=== PATIENT | female | born 1990 | race Caucasian/White ===

== ENCOUNTER → 2020-02-23 11:12 | Outpatient (BNVA) | payer MEDICAID, SELFPAY | PROVIDERS: Visit Provider Advanced Practice Midwife | DX: Z76.89 Persons encountering health services in other specified circumstances (principal) ==

== ENCOUNTER → 2020-04-05 13:03 | Outpatient (BNVA) | payer OTHER, SELFPAY | PROVIDERS: Visit Provider Advanced Practice Midwife | DX: Z30.432 Encounter for removal of intrauterine contraceptive device (principal); Z30.09 Encounter for other general counseling and advice on contraception; N92.6 Irregular menstruation, unspecified | CPT/HCPCS: 58301; 81025; 99212 ==

== ENCOUNTER 2020-10-15 10:44 | Outpatient (REF) | payer OTHER, SELFPAY | END 2020-10-15 10:45 | disposition home or self-care (01) | LOC: HO.LAB 10:44 | PROVIDERS: Visit Provider Internal Medicine | DX: Z20.822 Contact with and (suspected) exposure to COVID-19 (principal) | CPT/HCPCS: C9803; U0003; U0005 ==

== ENCOUNTER 2020-10-28 12:56 | Outpatient (REF) | payer OTHER, SELFPAY | END 2020-10-28 12:57 | disposition home or self-care (01) | LOC: HO.LAB 12:56 | PROVIDERS: Visit Provider Internal Medicine | DX: Z20.822 Contact with and (suspected) exposure to COVID-19 (principal) | CPT/HCPCS: C9803; U0003; U0005 ==

== ENCOUNTER 2021-03-27 08:32 | Outpatient (REF) | payer OTHER, SELFPAY ==
[2021-03-27 09:57] LABS: Binax Now Covid-19 Ag Negative (Negative)
[2021-03-27 09:58] LABS: Binax Internal Control QC Valid
== END 2021-03-27 08:33 | disposition home or self-care (01) ==
LOC: HO.LAB 08:32
PROVIDERS: Visit Provider Internal Medicine
DX: Z20.822 Contact with and (suspected) exposure to COVID-19 (principal)
CPT/HCPCS: C9803

== ENCOUNTER 2021-08-12 11:02 | Outpatient (REF) | payer OTHER, SELFPAY ==
[2021-08-13 09:22] LABS: BV Int Neg Control Negative (Negative); BV Int Pos Control Positive (Positive)
[2021-08-13 09:39] LABS: CT PCR NOT DETECTED (Not Detect.); NG PCR NOT DETECTED (Not Detect.)
== END 2021-08-12 11:03 | disposition home or self-care (01) ==
LOC: HO.LAB 11:02
PROVIDERS: Visit Provider Advanced Practice Midwife
DX: Z11.3 Encounter for screening for infections with a predominantly sexual mode of transmission (principal); N76.0 Acute vaginitis; B96.89 Other specified bacterial agents as the cause of diseases classified elsewhere; Z20.2 Contact with and (suspected) exposure to infections with a predominantly sexual mode of transmission
CPT/HCPCS: 87480; 87491; 87510; 87591; 87660; 99212

== ENCOUNTER 2022-02-24 10:24 | Emergency (ER) | payer OTHER, SELFPAY ==
[2022-02-24 10:29] VITALS: BP 124/87; PULSE 99; RESP 19; TEMP 37.3; O2SAT 97; BMI 29.0
--- NOTE | 2022-02-24 11:31 | ED_ITS ---
HPI - URI/Sore Throat General Chief Complaint: Upper Respiratory Symptoms Stated Complaint: Flu Symptoms Time Seen by Provider: 02/24/22 11:29 Source: patient Mode of arrival: ambulatory Limitations: no limitations History of Present Illness HPI Narrative: 31 yo female with a history of asthma here with complaints of cough, wheezing, headaches, fever, sore throat, body aches since Wednesday. Son has a flu. No chest pain, difficulty breathing, abdominal pain, vomiting, diarrhea, leg pain or leg swelling. Related Data Home Medications Medication Instructions Recorded Confirmed albuterol sulfate 90 mcg/actuation 2 puff inhalation Q6H PRN 08/12/21 08/12/21 aerosol inhaler (Proventil HFA) Previous Rx's Medication Instructions Recorded metronidazole 0.75 % (37.5 mg/5 1 appful vaginal BID 5 days #70 08/12/21 gram) vaginal gel grams Allergies Allergy/AdvReac Type Severity Reaction Status Date / Time No Known Allergies Allergy Mild NONE Verified 08/12/21 11:07 Review of Systems Review of Systems: Yes all other systems are reviewed and are negative Constitutional: Constitutional: Reports no additional constitutional complaints, Reports body ache(s), Denies chills, Reports fever(s), Reports headache(s) and Denies weakness Eyes: Eyes: Reports no additional eye complaints and Denies change in vision ENT: Reports system reviewed and no additional complaints, except as documented, Denies dizziness, Reports headache(s), Denies nasal congestion, Denies nasal discharge, Denies neck pain and Reports sore throat Cardiovascular: Cardiovascular: Reports no additional cardiovascular complaints, Denies chest pain, Denies leg edema and Denies dyspnea Respiratory: Respiratory: Reports no additional respiratory complaints, Reports cough, Denies dyspnea and Reports wheezing Gastrointestinal: Gastrointestinal: Reports no additional gastrointestinal complaints, Denies abdominal pain, Denies diarrhea, Denies nausea and Denies vomiting Genitourinary: Genitourinary: Reports no additional female genitourinary complaints and Denies urinary incontinence Musculoskeletal: Musculoskeletal: Reports no additional musculoskeletal complaints, Denies back pain, Denies arthralgias, Denies joint swelling, Denies neck pain, Denies numbness and Denies tingling Integumentary/Breasts: Skin/Breast: Reports system reviewed and no additional complaints, except as docu and Denies rash Neurologic: Reports system reviewed and no additional complaints, except as documented, Denies Abnormal speech present, Denies dizziness, Reports headache(s), Denies numbness, Denies tingling and Denies weakness Allergic/Immunologic: Allergic/Immunologic: Reports wheezing [facility] Past Medical History Attestation statement: The following information was validated with the patient. Source: old records reviewed and nursing notes reviewed Medical History Asthma Surgical History History of cholecystectomy Social History Social History Alcohol intake: former Advance Directives: No Gender identity: Female Physical Exam Vital Signs: Vital Signs: Last Vital Signs Temp 99.2 F 02/24/22 10:29 Pulse 99 02/24/22 10:29 Resp 19 02/24/22 10:29 BP 124/87 02/24/22 10:29 Pulse Ox 97 02/24/22 10:29 O2 Del Method 02/24/22 10:29 BMI result Body Mass Index 29.0 Const: General: cooperative, healthy appearing, comfortable and no acute distress Orientation/consciousness: patient oriented x3 Limitations: no limitations HEENT: Head: Yes normal to inspection Ears: hearing grossly normal bilaterally and TM's normal bilaterally General nose exam: Normal external nose present Face and sinus: Yes normal facial exam Mouth: Normal oral and palatal mucosa present Throat: Yes posterior oropharynx normal, Yes tonsils normal and Yes uvula midline Eyes: General: appearance normal, both eyes and all related structures Pupils: Equal, round and reactive pupils present Neck: Neck: Yes normal visual inspection, Yes full ROM, Yes no lymphadenopathy and Yes no meningeal signs Chest: Chest palpation & inspection: normal inspection of the chest Resp: Effort & Inspection: normal respiratory effort Auscultation: clear to auscultation bilaterally Cardio: Rate: regular rate Rhythm: regular rhythm Peripheral pulses: Peripheral pulses 2+ throughout GI: Inspection: Yes normal to inspection Palpation (GI): Soft to palpation and nontender Auscultation: normal bowel sounds Back/Spine/Pelvis: Thoracic/Lumbar Spine: thoracic and lumbar spine normal to inspection Skin: General skin exam: no rashes or lesions noted Neuro: General: patient oriented x3, no meningeal signs, no focal motor deficits and normal sensation to monofilament Cranial nerves: Yes Equal, round and reactive pupils present Cognition (Neuro): normal cognition Speech: No Abnormal speech present Gait exam (Neuro): Normal gait present Motor exam (neuro): 5/5 motor strength present throughout Extrem: General: Yes normal to inspection Course Course Course Narrative: Influenza a positive. Lungs clear. No hypoxia or tachypnea. Patient has had symptoms since Wednesday so I do not believe Tamiflu would be helpful. Recommended supportive care at home. Reviewed worrisome signs and symptoms of when to return to the emergency room. Comfortable plan for discharge home. Reevaluation(s) Reevaluation #1: Patient on discharge quite upset that she would not be receiving Tamiflu. I did speak to the patient again and explained that Tamiflu is only helpful if given within the 1st 48 hours. As she has had symptoms since Wednesday I do not believe it would be helpful and in fact she may have more side effects of vomiting and diarrhea and this may make her feel worse. Patient was not happy with but we did recommend that she continue supportive care at home with Motrin, Tylenol and lots of fluids. She is concerned that she may have some asthma symptoms. I reassured her that her lungs are clear and her oxygen saturation is normal. She can continue her albuterol as needed. Medical Decision Making Medical Decision Making [facility] Narrative: 31-year-old female here with flu-like symptoms since Wednesday with exposure to the flu Vitals are stable Exam is normal Will send testing for flu, COVID, RSV Differential Diagnosis Differential Diagnoses: The differential diagnosis associated with the presentation includes Influenza, viral syndrome Lab Data Labs: Lab Results 02/24/22 Range/Units 10:48 Influenza Type A (PCR) POSITIVE A (Negative) Influenza Type B (PCR) NEGATIVE (Negative) RSV RNA Qual (PCR) NEGATIVE (Negative) SARS-CoV-2 RNA (RT-PCR) NEGATIVE (Negative) Discharge Plan Discharge Clinical Impression: Influenza Patient Disposition: Home, Self-Care Instructions: Influenza (ED) Additional Instructions: Alternate Motrin and Tylenol for pain or fever Increase fluids, rest We discussed at this point Tamiflu would not be helpful Use your inhaler as needed for cough or wheezing Prescriptions: No Action albuterol sulfate [Proventil HFA] 90 mcg/actuation HFA aerosol inhaler 2 puff inhalation Q6H PRN metronidazole 0.75 % gel 1 appful vaginal BID 5 Days Qty: 70 5RF Referrals: Physician,Unknown J [Primary Care Provider] - Stand Alone Forms: Work/School Release
[2022-02-24 11:34] LABS: Influenza A PCR POSITIVE (Negative); Influenza B PCR NEGATIVE (Negative); Resp Syncy Virus RNA Qual PCR NEGATIVE (Negative); SARS COV2 PCR INHOUSE NEGATIVE (Negative)
== END 2022-02-24 12:57 | disposition home or self-care (01) ==
PROVIDERS: Emergency Provider Emergency Medicine
DX: J10.1 Influenza due to other identified influenza virus with other respiratory manifestations (principal); R05.9 Cough, unspecified; R51.9 Headache, unspecified; R50.9 Fever, unspecified; Z20.822 Contact with and (suspected) exposure to COVID-19
CPT/HCPCS: 0241U; 99282; 99283

== ENCOUNTER 2023-02-26 10:47 | Outpatient (REF) | payer OTHER, SELFPAY ==
[2023-02-27 10:32] LABS: CT PCR NOT DETECTED (Not Detect.); NG PCR NOT DETECTED (Not Detect.)
[2023-02-28 11:45] LABS: BV Int Neg Control Negative (Negative); BV Int Pos Control Positive (Positive)
[2023-03-04 23:07] LABS: HPV mRNA E6/E7 rflx Not Detected (Not Detected)
== END 2023-02-26 10:48 | disposition home or self-care (01) ==
LOC: HO.LNP 10:47
PROVIDERS: Visit Provider Advanced Practice Midwife
DX: Z01.419 Encounter for gynecological examination (general) (routine) without abnormal findings (principal); N89.8 Other specified noninflammatory disorders of vagina; Z79.899 Other long term (current) drug therapy
CPT/HCPCS: 0353U; 87480; 87510; 87624; 87660; 88142; 99212

== ENCOUNTER 2023-02-26 10:47 | Outpatient (AMB) | payer OTHER, SELFPAY ==
--- NOTE | 2023-02-26 10:48 | A.OFFVIS_ITS ---
Intake Vital Signs 02/26/23 10:49 Height 5 ft 6 in Weight 173 lb BMI 27.9 BP 118/72 Intake Visit Reasons: private matter Intake Note: having white discharge and sometimes has smell Medical Office Rep Required: No Information Interpreted: non-clinical & clinical Concrete Pile Driver Operator: Concrete Pile Driver Operator Present (Celena) Allergies No Known Allergies Allergy (Mild, Verified 02/26/23 10:50) NONE Medication List - Last Reconciled 02/26/23 by Natalee Rosenbaum CNM albuterol sulfate 90 mcg/actuation (Proventil HFA) 2 puffs inhalation Q6H PRN Is last menstrual period known: Yes Last menstrual period: 02/02/23 Post menopausal: No PFSH Medical History Asthma Surgical History History of cholecystectomy Family History (Updated 02/26/23 @ 10:55 by TOAN Kathleen) Maternal Grandmother Breast cancer Social History Alcohol intake: former Gender identity: Female Female Reproductive History Menstrual Age of Menarche: 9 Duration of menses: 3-5 days Date of last menstrual period: 02/02/23 control method: none Total pregnancies: 1 Full term: 1 Number of Living Children: 1 Date of last pap smear: 10/08/14 (negative) History of abnormal pap smear: No Physical Exam Vital Signs: Last Vital Signs BP 118/72 02/26/23 10:49 BMI result Body Mass Index 27.9 External Female Exam: normal external appearance Speculum Exam - Vagina: normal appearance of the vagina and normal vaginal discharge Speculum Exam - Cervix: normal appearance of the cervix Bimanual exam- vagina & uterus: normal bimanual exam, uterine size normal, consistency normal, uterine mobility normal, uterine shape normal and non-tender Bimanual Exam- Adnexa, other: normal adnexae, no masses and No adnexal tenderness Assessment & Plan Assessment & Plan (1) Vaginal odor: Comment: Extensive teaching about BV and normal menstrual changes and vaginal hygiene re done at 02/26/2023 visit. Offering p.r.n. use of Metrogel and 1 time use of metronidazole for severe symptoms. rec condoms/boric acid Code(s): N89.8 - Other specified noninflammatory disorders of vagina (2) control counseling: Code(s): Z30.09 - Encounter for other general counseling and advice on contraception (3) Cervical cancer screening: Comment: Had come for BV checks but not annual exams Pap smear done today at visit for vaginal odor 02/26/2023 previous Pap 2015 Code(s): Z12.4 - Encounter for screening for malignant neoplasm of cervix Plan ---Discussed the current research around the phenomena of bacterial vaginosis, and the many factors involved in the increase and change in the prevalence of certain bacteria in the vagina, that contribute to the clingy discharge, the fishy malodor, and the discomfort, that many women experience very frequently in their lives. Discussed the many factors that can promote it, and current thinking about best options for treatment of both the a 1 time episode, or frequently occurring episodes. Discussed the role of partner condom use. Discussed that previously, treatment was recommended for both partners, but is not currently recommended today in 2020. Discussed the testing involved. Discussed treatment options including Flagyl, metronidazole gel, boric acid capsules and others. Patient says she can not find the information I gave her last year about vaginal health and BV we will send her more information some in [place], some in Czech today. Orders: Orders Pap Smear Today Z12.4 - Encounter for screening for malignant neoplasm of cervix Bacterial Vaginosis Panel Today N89.8 - Other specified noninflammatory disorders of vagina CT NG by PCR Today N89.8 - Other specified noninflammatory disorders of vagina Medications: New metronidazole 500 mg PO Q12H 14 tabs 0RF metronidazole 0.75%(37.5mg/5gram) 1 appful vaginal BID 5 days 70 grams 2RF Coding Level of Care Code Est Pt Level 3 (11849) Diagnoses Vaginal odor N89.8 control counseling Z30.09 Cervical cancer screening Z12.4
[2023-02-26 10:49] VITALS: BP 118/72; BMI 27.9
== END 2023-02-26 11:28 | disposition home or self-care (01) ==
PROVIDERS: Visit Provider Advanced Practice Midwife
DX: N89.8 Other specified noninflammatory disorders of vagina (principal); Z30.09 Encounter for other general counseling and advice on contraception
CPT/HCPCS: 99213

== ENCOUNTER 2023-06-03 10:46 | Outpatient (AMB) | payer OTHER, SELFPAY ==
[2023-06-03 11:00] VITALS: BP 118/72; BMI 29.4
--- NOTE | 2023-06-03 11:00 | A.OFFVIS_ITS ---
Intake Vital Signs 06/03/23 11:00 Height 5 ft 6 in Weight 182 lb BMI 29.4 BP 118/72 Blood Pressure Location Rt brachial Position Sitting Intake Visit Reasons: 3 month follow up Allergies No Known Allergies Allergy (Mild, Verified 06/03/23 11:00) NONE Medication List - Last Reconciled 06/03/23 by Natalee Rosenbaum CNM albuterol sulfate 90 mcg/actuation (Proventil HFA) 2 puffs inhalation Q6H PRN HPI 3 month follow up HPI Details Patient says she was given this ap pointment when she left after the last 1 though it is a little bit unclear why. She says she treated herself with the metronidazole pills and the gel and she did get better for a while but she feels like she has a bad smell discharge that comes back she and her partner of 8 years had a discussion and they agreed to use condoms that is the only method of control at any rate anyway she has not exactly keeping track of her periods though she says her last period was a about the beginning of last month maybe about the 6th it is sometimes irregular. So she has not been keeping track exactly she is troubled by changes in the smell of her vagina and her discharge and though she has not having any bad smell or at bad discharge today. She is scared that the something wrong with her and talks about it as being her situation. She is wondering what else she should do she has stopped using different kinds of scented products and is just very worried that there is something wrong with her. She is going without on these at night now and wanted to check that that was okay too. She expresses lots of worry about there being something wrong with her and worried about the smell that she always has it discharge and that is always some smell there but it is different at different times. She has 1 child is 14 years she thinks she would like to have another baby but she wants to make sure everything is okay with her 1st. [facility] Medical History Asthma Surgical History History of cholecystectomy Family History Maternal Grandmother Breast cancer Social History Alcohol intake: former Gender identity: Female Female Reproductive History Menstrual Age of Menarche: 9 Total pregnancies: 1 Full term: 1 Number of Living Children: 1 Date of last pap smear: 03/01/23 History of abnormal pap smear: No Physical Exam Vital Signs: Last Vital Signs BP 118/72 06/03/23 11:00 BMI result Body Mass Index 29.4 Other: Patient has vagina was pink and smooth with a very smooth multiparous cervix with no abnormal discharge whatsoever it did bleed slightly with the Q-tip at the os for the GC chlamydia and also testing was also done for trichomoniasis Gardnerella and Elizabeth. I encouraged the patient to look at her very healthy discharge and showed her this scant clear whitish discharge at the tip of the speculum that appeared to be within normal range and discussed that there is always some fluid in the vagina and that is how it stays moist and there is always going to be some bacteria there and it only needs to be treated it if it is causing the symptoms bacterial vaginosis which I explained in detail External Female Exam: normal external appearance and normal appearance of the urethra Speculum Exam - Vagina: normal appearance of the vagina and normal vaginal discharge Speculum Exam - Cervix: normal appearance of the cervix and Cervical os closed Assessment & Plan Assessment & Plan (1) Vaginal odor: Comment: Extensive teaching about BV and normal menstrual changes and vaginal hygiene re done at 02/26/2023 visit. Offering p.r.n. use of Metrogel and 1 time use of metronidazole for severe symptoms. rec condoms/boric acid Code(s): N89.8 - Other specified noninflammatory disorders of vagina (2) Bacterial vaginosis: Comment: Not evident today await testing extensive teaching done about only treating when evidence is clear of the entire syndrome being present. P.r.n. treatment prescribed and offered with extensive teaching. Code(s): N76.0 - Acute vaginitis; B96.89 - Other specified bacterial agents as the cause of diseases classified elsewhere (3) Cervical cancer screening: Comment: Had come for BV checks but not annual exams. Previous Pap smear done done 2014, pap done at visit for vaginal odor 02/26/23= neg w neg hpv; Code(s): Z12.4 - Encounter for screening for malignant neoplasm of cervix Plan Extensive teaching was done about patient's normal cycles normal jayesh normal vaginal changes normal mucus changes her self-care which is excellent and her use of condoms which will definitely improve the chances of recurrence of bacterial vaginosis also discussed it as a useful tool for control because she has not interested in anything else. Discussed that if she did have symptoms of a thick creamy sticky adherent whitish or otherwise discharge that cleans to the vaginal garner that in parts a very fishy odor or malodor and is uncomfortable that that is worthy of treatment laney bacterial vaginosis but simply having Gardnerella show up on the test is not. Additionally discussed teaching done about yeast as well discussed other normal jayesh and how everything we put in the vagina can in packed are vagina and change the jayesh and every time we treat 1 thing something else can appear. I discussed the options of having a prescription available to her for metronidazole pills for when she has an absolutely clear bacterial vaginosis event but to really try to limit use of that as it is a very strong medication and I also am sending a refill for metronidazole gel that she can use also if absolutely necessary but also to be very careful about its use and I also educated her again about boric acid capsules but all of these modalities need to be used judiciously and with care and possibly not at all and the less we put in our vagina is the better much teaching was done about that most of our vaginal changes are within the normal limits and that there is a lot of marketing and information in the world currently trying to make us believe that there is something wrong with us when there isn't additionally I discussed the normal discharge changes that happen with an are cycle and if she is considering in the future and she may be this would be a very good opportunity while she is using the condoms to get to know daily the changes that happen with in her cycle but for that she needs to keep track and the come much more aware but from a sense of ownership and not fear that something is wrong. Gave her another copy of care for down there in [place]. Orders: Orders CT NG by PCR Today N89.8 - Other specified noninflammatory disorders of vagina Bacterial Vaginosis Panel Today N89.8 - Other specified noninflammatory disorders of vagina Medications: Refilled metronidazole 0.75%(37.5mg/5gram) 1 appful vaginal BID 5 days 70 grams 2RF metronidazole 500 mg PO Q12H 14 tabs 0RF Coding Level of Care Code Est Pt Level 3 (50407) Diagnoses Vaginal odor N89.8 Bacterial vaginosis N76.0; B96.89 Cervical cancer screening Z12.4
== END 2023-06-03 12:57 | disposition home or self-care (01) ==
LOC: HO.HWSM 10:46
PROVIDERS: Visit Provider Advanced Practice Midwife
DX: N89.8 Other specified noninflammatory disorders of vagina (principal); B96.89 Other specified bacterial agents as the cause of diseases classified elsewhere
CPT/HCPCS: 99213

== ENCOUNTER 2023-06-03 10:46 | Outpatient (REF) | payer OTHER, SELFPAY ==
[2023-06-04 04:05] LABS: CT PCR NOT DETECTED (Not Detect.); NG PCR NOT DETECTED (Not Detect.)
[2023-06-04 12:54] LABS: BV Int Neg Control Negative (Negative); BV Int Pos Control Positive (Positive)
== END 2023-06-03 10:47 | disposition home or self-care (01) ==
LOC: HO.LNP 10:46
PROVIDERS: Visit Provider Advanced Practice Midwife
DX: N89.8 Other specified noninflammatory disorders of vagina (principal); B96.89 Other specified bacterial agents as the cause of diseases classified elsewhere
CPT/HCPCS: 0353U; 87480; 87510; 87660; 99212